=== PATIENT | male | born 1980 | race Caucasian/White ===

== ENCOUNTER 2017-09-29 11:03 | Inpatient (IN) | payer OTHER ==
[~2017-09-29] VITALS: Ht 180.3 cm; Wt 77.0 kg
[2017-09-29 11:11] VITALS: BP 133/88; PULSE 88; RESP 16; TEMP 98.6; O2SAT 98
[2017-09-29 12:24] LABS: AUTOMATED NEUTROPHIL # 3.6 TH/MM3 (1.8-7.7); BASOPHIL % 0.5 % (0.0-2.0); EOSINOPHIL # 0.1 TH/MM3 (0-0.4); EOSINOPHIL % 1.9 % (0.0-4.0); HEMOGLOBIN 16.2 GM/DL (13.0-17.0); LYMPH % 27.7 % (9.0-44.0); LYMPHOCYTE # 1.6 TH/MM3 (1.0-4.8); MEAN CORPUSCULAR HEMOGLOBIN 32.8 PG (27.0-34.0); MEAN CORPUSCULAR HGB CONC 34.5 % (32.0-36.0); MEAN PLATELET VOLUME 10.1 FL (7.0-11.0); MONO % 8.2 % (0.0-8.0); MONOCYTE # 0.5 TH/MM3 (0-0.9); NEUT % 61.7 % (16.0-70.0); PLATELET COUNT 149 TH/MM3 (150-450); RED BLOOD COUNT 4.95 MIL/MM3 (4.50-5.90); RED CELL DISTRIBUTION WIDTH 12.7 % (11.6-17.2); WHITE BLOOD COUNT 5.9 TH/MM3 (4.0-11.0)
[2017-09-29 12:56] LABS: ALBUMIN 4.1 GM/DL (3.4-5.0); ALKALINE PHOSPHATASE 47 U/L (45-117); ALT (GPT) 24 U/L (12-78); AST (GOT) 11 U/L (15-37); BICARBONATE 23.5 MEQ/L (21.0-32.0); BLOOD UREA NITROGEN 12 MG/DL (7-18); CALCIUM 8.5 MG/DL (8.5-10.1); CHLORIDE 110 MEQ/L (98-107); CREATININE 0.78 MG/DL (0.60-1.30); GLOMERULAR FILTRATION RATE 112 ML/MIN (>89); GLUCOSE,RANDOM 87 MG/DL (74-106); SODIUM (NA) 143 MEQ/L (136-145); TOTAL BILIRUBIN ADULT 0.6 MG/DL (0.2-1.0); TOTAL PROTEIN 7.3 GM/DL (6.4-8.2)
[2017-09-29 13:02] LABS: ACETAMINOPHEN LESS THAN 2.0 MCG/ML (10.0-30.0)
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
[2017-09-29] MEDS ORDERED: diphenhydrAMINE HCL 50 MG/ML VIAL IM PRN (16:00)
[2017-09-29] MEDS ORDERED: ALUMINUM/MAGNESIUM/SIMETH 30 ML CUP PO PRN (16:00)
[2017-09-29] MEDS ORDERED: ACETAMINOPHEN 325 MG TAB PO PRN (16:00)
[2017-09-29] MEDS ORDERED: MAGNESIUM HYDROXIDE SUSP 30 ML CUP PO PRN (16:00)
[2017-09-29] MEDS: ZIPRASIDONE HCL 40 MG CAP PO SCH ×2 (16:36→17:58)
[2017-09-29] MEDS: NICOTINE 21 MG/24 HR PATCH T-DERMAL SCH (16:38)
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
[2017-09-29 17:59] VITALS: BP 144/89; PULSE 72; RESP 18; TEMP 97.8; O2SAT 100
[2017-09-29] MEDS: diphenhydrAMINE HCL 50 MG CAP PO PRN (19:43)
[2017-09-30] MEDS: diphenhydrAMINE HCL 50 MG CAP PO PRN ×2 (03:12→22:37)
[2017-09-30 06:01] VITALS: BP 137/87; PULSE 59; RESP 18; TEMP 97; O2SAT 99
[2017-09-30] MEDS: NICOTINE 21 MG/24 HR PATCH T-DERMAL SCH (09:00)
[2017-09-30] MEDS: REMOVE OLD PATCH T-DERMAL SCH (09:00)
[2017-09-30 09:02] LABS: BICARBONATE 22.2 MEQ/L (21.0-32.0); BLOOD UREA NITROGEN 10 MG/DL (7-18); CALCIUM 9.3 MG/DL (8.5-10.1); CHLORIDE 109 MEQ/L (98-107); CHOLESTEROL 130 MG/DL (120-200); CREATININE 0.97 MG/DL (0.60-1.30); GLOMERULAR FILTRATION RATE 87 ML/MIN (>89); GLUCOSE,RANDOM 109 MG/DL (74-106); SODIUM (NA) 141 MEQ/L (136-145); TRIGLYCERIDES 133 MG/DL (42-150)
[2017-09-30 09:21] LABS: CHOLESTEROL/ HDL RATIO 3.14 RATIO; HDL CHOLESTEROL 41.3 MG/DL (40.0-60.0); LDL CHOLESTEROL 62 MG/DL (0-99)
[2017-09-30] MEDS ORDERED: INFLUENZA VIRUS VACCINE (QUADRIVALENT) 0.5 ML SYR IM ONE (10:00)
[2017-09-30 13:40] LABS: HEMOGLOBIN A1C 4.7 % (4.3-6.0)
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
[2017-09-30 16:44] VITALS: BP 150/96; PULSE 71; RESP 18; TEMP 97.6; O2SAT 99
[2017-10-01 05:53] VITALS: BP 144/84; PULSE 64; RESP 16; TEMP 98; O2SAT 98
[2017-10-01] MEDS: ZIPRASIDONE HCL 40 MG CAP PO SCH (08:51)
[2017-10-01] MEDS: NICOTINE 21 MG/24 HR PATCH T-DERMAL SCH (08:55)
[2017-10-01] MEDS: REMOVE OLD PATCH T-DERMAL SCH (09:00)
--- NOTE | 2017-10-01 11:45 | PD.CONS ---
HPI Service [facility] Hospitalists Consult Requested By Dr. Frost Reason for Consult Medical Management Primary Care Physician No Primary Care Physician Diagnoses: History of Present Illness 37-year-old male with no significant past medical history admitted to inpatient psychiatry under Ex Parte placed by his mother who is a retired psychologist, for acute psychosis, drug abuse, grand larceny, paranoia. Hospitalist consulted for medical management. The patient reports no significant past medical history. Does not take any medications on a regular basis. He denies any medical complaints including no fever/chills, cough, congestion, headache, lightheadedness, dizziness, chest pain, palpitations, shortness of breath, abdominal pain, nausea/vomiting, diarrhea, or urinary complaints. He does continue to smoke tobacco however is motivated to quit with nicotine patches. Reports occasional alcohol and marijuana use, denies any other illicit drug use. Discussed with RN, no issues reported. Review of Systems Except as stated in HPI: all other systems reviewed are Neg Past Family Social History Allergies: Coded Allergies: No Known Allergies (Verified Allergy, Unknown, 09/29/17) Past Medical History Nephrolithiasis Past Surgical History Hernia repair Some urologic procedure for nephrolithiasis. Reported Medications Denies taking any medications on a regular basis. Active Ordered Medications Current Medications Medications (Trade) Dose Ordered Sig/Amy Route Start Time Stop Time Status Last Admin (Benadryl) 50 mg Q6H PRN PO 09/29/17 16:00 09/30/17 22:37 (Benadryl Inj) 50 mg Q6H PRN IM 09/29/17 16:00 (Tylenol) 650 mg Q4H PRN PO 09/29/17 16:00 (Milk Of Magnesia Liq) 30 ml DAILY PRN PO 09/29/17 16:00 (Mag-Al Plus Susp Liq) 30 ml Q6H PRN PO 09/29/17 16:00 (Habitrol 21 Mg Patch.24 Hr) 1 patch DAILY T-DERMAL 09/29/17 16:00 10/01/17 08:55 Miscellaneous Information 1 DAILY T-DERMAL 09/30/17 09:00 10/01/17 09:00 (Geodon) 40 mg BIDPC PO 09/29/17 16:00 10/01/17 08:51 Family History Mother with history of borderline diabetes Denies any other significant family history of cancers, stroke, heart disease Social History Smokes tobacco 1/2 to 2/3 pack per day, trying to quit Occasional alcohol use Occasional marijuana use Denies any other illicit drug use Physical Exam Vital Signs Vital Signs Date Time Temp Pulse Resp B/P (MAP) Pulse Ox O2 Delivery O2 Flow Rate FiO2 10/01/17 05:53 98.0 64 16 144/84 (104) 98 09/30/17 16:44 97.6 71 18 150/96 (114) 99 Physical Exam GENERAL: Well-nourished, well-developed young male patient in NAD. SKIN: Warm and dry. No rash. HEAD: Normocephalic. Atraumatic. EYES: Pupils equal and round. No scleral icterus. No injection or drainage. ENT: No nasal bleeding or discharge. Mucous membranes pink and moist. NECK: Supple. Trachea midline. CARDIOVASCULAR: Regular rate and rhythm. No murmur appreciated. RESPIRATORY: No accessory muscle use. Clear to auscultation. Breath sounds equal bilaterally. GASTROINTESTINAL: Abdomen soft, non-tender, nondistended. Normoactive bowel sounds x4. MUSCULOSKELETAL: No obvious deformities. Extremities without clubbing, cyanosis , or edema. NEUROLOGICAL: AAOx4. No obvious cranial nerve deficits. Motor grossly within normal limits. Moving all extremities spontaneously. Normal speech. Result Diagram: 09/29/17 1145 09/30/17 0805 Assessment and Plan Problem List: (1) Unspecified psychosis ICD Code: F29 - Unspecified psychosis not due to a substance or known physiological condition Status: Acute Assessment and Plan 37-year-old male with no significant past medical history admitted to inpatient psychiatry under Ex Parte placed by his mother who is a retired psychologist, for acute psychosis, drug abuse, grand larceny, paranoia. Hospitalist consulted for medical management. Acute Psychosis: presented under Ex Parte placed by the patient's mother -Continue management per psychiatry -CBC, CMP, TSH reviewed and unremarkable -UDS positive for cannabinoids only so far -Check Head CT to rule out organic etiology -Continue on geodon per psychiatry Tobacco Use: patient smokes 1/2 to 2/3 PPD, motivated to quit -counseled on cessation -nicotine patch Marijuana Use: patient with occasional marijuana use, UDS positive for cannabinoids -counseled on cessation DVT Prophylaxis: patient is ambulatory Code Status Full Code Discussed Condition With Patient, RN Disposition: If head CT negative, the patient will be medically cleared. Addendum: Head CT reviewed and unremarkable. The patient is medically stable, will sign off. Please re-consult hospitalists as needed if any new issues arise. Thank you for this consultation. Rosalina Duque PA-C Oct 01, 2017 11:44
--- NOTE | 2017-10-01 14:39 | RADRPT ---
EXAM DATE: 10/01/2017 2:02 PM EDT AGE/SEX: 37 years / Male INDICATIONS: Altered mental status CLINICAL DATA: This is the patient's initial encounter. Patient reports that signs and symptoms have been present for 1 day and indicates a pain score of 0/10. MEDICAL/SURGICAL HISTORY: None. None. RADIATION DOSE: 38.86 CTDI (mGy) COMPARISON: No prior exams available for comparison. TECHNIQUE: CT of the head without contrast. Using automated exposure control and adjustment of the mA and/or kV according to patient size, radiation dose was kept as low as reasonably achievable to ob tain optimal diagnostic quality images. FINDINGS: Cerebrum: The ventricles are normal for age. No evidence of midline shift, mass lesion, hemorrhage or acute infarction. No extraaxial fluid collections are seen. Posterior Fossa: The cerebellum and brainstem are intact. The 4th ventricle is midline. The cerebe llopontine angle is unremarkable. Extracranial: The visualized portion of the orbits is intact. Skull: The calvaria is intact. No evidence of skull fracture. CONCLUSION: No intracranial abnormality is seen. Electronically signed by: Chele Matthew MD 10/01/2017 2:37 PM EDT
--- NOTE | 2017-10-01 14:46 | HHI.PYPN ---
Subjective Remarks Patient seen and lennon with nurse Dieudonne, chart reviewed, patient compliant medications. Patient calm and cooperative with me though there is a vague vigilance and guardedness with him. There is some subtle delays in responses, there is some confusing and contradictory responses also noted related to his timeline coming down here his living situations his education and his substance use. He is also some vagueness with his relationship with his mother. Though he does acknowledge albeit somewhat reluctantly multiple drug abuse including intravenous drug abuse primarily opiates. He does deny voices. He does deny suicidality. Denies inpatient psychiatric hospitalization will be stated his family had a Ritalin as a child and he has been on Prozac briefly as a teenager. He does acknowledge smoking marijuana frequently. At this time I feel he still meets criteria for further observation under the Edwards act. I will increase his Geodon to 80 mg twice daily from 40 mg twice daily Review of Systems Except as stated in HPI: all other systems reviewed are Neg Mental Status Examination Appearance: Appropriate Consciousness: Vigilant Orientation: x4 Motor Activity: Normal gait Speech: Rapid Language: Adequate Fund of Knowledge: Inadequate Attention and Concentration: Adequate Memory: Unremarkable Mood: Anxious Affect: Anxious Thought Process & Associations: Tangential Thought Content: Bizarre thinking, Delusional Hallucination Type: None Delusion Type: Paranoid Suicidal Ideation: No Suicidal Plan: No Suicidal Intention: No Homicidal Ideation: No Homicidal Plan: No Insight: Poor Judgment: Poor Results Vitals/IOs Vital Signs Date Time Temp Pulse Resp B/P (MAP) Pulse Ox O2 Delivery O2 Flow Rate FiO2 10/01/17 05:53 98.0 64 16 144/84 (104) 98 Assessment & Plan Problem List: (1) Unspecified psychosis ICD Codes: F29 - Unspecified psychosis not due to a substance or known physiological condition Status: Acute Assessment & Plan Estimated LOS: days patient remains psychotic somewhat delusional quite confusing. She medication adjustment above Justification for Cont. Inpt. At this time patient would decompensate the place to a lower level of care Discharge Planning To be determined perhaps back with his mother Chele Garcia MD Oct 01, 2017 14:46
[2017-10-01] MEDS: ZIPRASIDONE HCL 80 MG CAP PO SCH (17:49)
[2017-10-01 18:09] VITALS: BP 144/85; PULSE 91; RESP 16; TEMP 98.2; O2SAT 97
[2017-10-02 06:01] VITALS: BP 143/74; PULSE 64; RESP 18; TEMP 97.4
[2017-10-02] MEDS: NICOTINE 21 MG/24 HR PATCH T-DERMAL SCH (09:00)
[2017-10-02] MEDS: REMOVE OLD PATCH T-DERMAL SCH (09:00)
[2017-10-02] MEDS: ZIPRASIDONE HCL 80 MG CAP PO SCH ×2 (09:13→17:29)
--- NOTE | 2017-10-02 15:48 | HHI.PYPN ---
Subjective Remarks Patient seen in his room the floor staff, chart reviewed, patient discussed with nurse. Patient continues quite malodorous, also continues somewhat disorganized with his speech is tangential and circumstantial. Is somewhat vague about voices today. Complaint is some possible stiffness or on his jaw. We will monitor that with the medication over the next 24 hours Review of Systems Except as stated in HPI: all other systems reviewed are Neg Mental Status Examination Appearance: Appropriate Consciousness: Vigilant Orientation: x4 Motor Activity: Normal gait Speech: Rapid Language: Adequate Fund of Knowledge: Inadequate Attention and Concentration: Adequate Memory: Unremarkable Mood: Anxious Affect: Anxious Thought Process & Associations: Tangential Thought Content: Bizarre thinking, Delusional Hallucination Type: None Delusion Type: Paranoid Suicidal Ideation: No Suicidal Plan: No Suicidal Intention: No Homicidal Ideation: No Homicidal Plan: No Insight: Poor Judgment: Poor Results Vitals/IOs Vital Signs Date Time Temp Pulse Resp B/P (MAP) Pulse Ox O2 Delivery O2 Flow Rate FiO2 10/02/17 06:01 97.4 64 18 143/74 (97) 10/01/17 18:09 97 Intake and Output 10/02/17 10/02/17 10/02/17 07:59 15:59 23:59 Intake Total 360 ml Balance 360 ml Assessment & Plan Problem List: (1) Unspecified psychosis ICD Codes: F29 - Unspecified psychosis not due to a substance or known physiological condition Status: Acute Assessment & Plan Estimated LOS: days patient continues psychotic, complaint medications now continue treatment still is quite poor with his ADLs Justification for Cont. Inpt. At this time patient would decompensate a place to a lower level of care Discharge Planning To be determined Chele Garcia MD Oct 02, 2017 15:48
[2017-10-02] MEDS: diphenhydrAMINE HCL 50 MG CAP PO PRN ×2 (16:41→22:35)
[2017-10-02 18:14] VITALS: BP 170/109; PULSE 88; RESP 20; TEMP 98.7; O2SAT 97
[2017-10-02 18:31] VITALS: BP 140/82; PULSE 87
[2017-10-02 23:25] VITALS: BP 141/90; PULSE 75; RESP 17; TEMP 98.3; O2SAT 97
[2017-10-03 06:13] VITALS: BP 145/67; PULSE 67; RESP 16; TEMP 97.7; O2SAT 99
[2017-10-03] MEDS: REMOVE OLD PATCH T-DERMAL SCH (09:00)
[2017-10-03] MEDS: NICOTINE 21 MG/24 HR PATCH T-DERMAL SCH (09:00)
[2017-10-03] MEDS: ZIPRASIDONE HCL 80 MG CAP PO SCH ×2 (09:35→18:25)
--- NOTE | 2017-10-03 12:29 | HHI.PYPN ---
Subjective Remarks Patient seen and lennon with floor staff, chart reviewed, patient compliant medications. Patient calm cooperative with me now denies suicidality homicidality voices or visions. Feels medications are helping him. Patient is scheduled for [facility] tomorrow. At the stomach feel patient has capacity to sign on a voluntary basis thus I will lift Edwards act allow patient to sign voluntary. For now continue treatment Review of Systems Except as stated in HPI: all other systems reviewed are Neg Mental Status Examination Appearance: Appropriate Consciousness: Vigilant Orientation: x4 Motor Activity: Normal gait Speech: Rapid Language: Adequate Fund of Knowledge: Inadequate Attention and Concentration: Adequate Memory: Unremarkable Mood: Anxious Affect: Anxious Thought Process & Associations: Tangential Thought Content: Bizarre thinking, Delusional Hallucination Type: None Delusion Type: Paranoid Suicidal Ideation: No Suicidal Plan: No Suicidal Intention: No Homicidal Ideation: No Homicidal Plan: No Insight: Poor Judgment: Poor Results Vitals/IOs Vital Signs Date Time Temp Pulse Resp B/P (MAP) Pulse Ox O2 Delivery O2 Flow Rate FiO2 10/03/17 06:13 97.7 67 16 145/67 (93) 99 Assessment & Plan Problem List: (1) BRIEF PSYCHOTIC DISORDER ICD Codes: F23 - BRIEF PSYCHOTIC DISORDER Assessment & Plan Estimated LOS: days patient's psychosis is slowly resolving, his vigilance and paranoid markedly diminished. He is no behavior problem. Will lift [place] act allow patient to sign voluntary Justification for Cont. Inpt. At this time patient would decompensate a place to a lower level of care Discharge Planning To be determined Chele Garcia MD Oct 03, 2017 12:29
[2017-10-03 15:23] VITALS: BP 128/78; PULSE 99; RESP 18; TEMP 98.4; O2SAT 99
[2017-10-03] MEDS: diphenhydrAMINE HCL 50 MG CAP PO PRN (18:25)
[2017-10-04 05:59] VITALS: BP 125/77; PULSE 80; RESP 16; TEMP 97.6; O2SAT 99
[2017-10-04] MEDS: NICOTINE 21 MG/24 HR PATCH T-DERMAL SCH (08:28)
[2017-10-04] MEDS: ZIPRASIDONE HCL 80 MG CAP PO SCH ×2 (08:29→17:42)
[2017-10-04] MEDS: REMOVE OLD PATCH T-DERMAL SCH (08:29)
[2017-10-04] MEDS: diphenhydrAMINE HCL 50 MG CAP PO PRN ×2 (08:55→17:42)
--- NOTE | 2017-10-04 15:40 | HHI.PYPN ---
Subjective Remarks Patient seen and lennon with nurse, chart reviewed, patient compliant medications. Patient somewhat calmer today and more focused he is making inquiries at the very sober houses in town including [facility]. He hopes to get in to that facility tomorrow. He denies suicidality homicidality voices or visions. He now continue treatment Review of Systems Except as stated in HPI: all other systems reviewed are Neg Mental Status Examination Appearance: Appropriate Consciousness: Vigilant Orientation: x4 Motor Activity: Normal gait Speech: Rapid Language: Adequate Fund of Knowledge: Inadequate Attention and Concentration: Adequate Memory: Unremarkable Mood: Anxious Affect: Anxious Thought Process & Associations: Tangential Thought Content: Bizarre thinking, Delusional Hallucination Type: None Delusion Type: Paranoid Suicidal Ideation: No Suicidal Plan: No Suicidal Intention: No Homicidal Ideation: No Homicidal Plan: No Insight: Poor Judgment: Poor Results Vitals/IOs Vital Signs Date Time Temp Pulse Resp B/P (MAP) Pulse Ox O2 Delivery O2 Flow Rate FiO2 10/04/17 05:59 97.6 80 16 125/77 (93) 99 Assessment & Plan Problem List: (1) BRIEF PSYCHOTIC DISORDER ICD Codes: F23 - BRIEF PSYCHOTIC DISORDER Assessment & Plan Estimated LOS: days patient's psychosis is slowly resolving, he now denies suicidality homicidality voice or visions. He is making contact with various safehouses sober living houses including [facility] that may have a place for him tomorrow Justification for Cont. Inpt. At this time patient would decompensate if not placed in an appropriate level of care Discharge Planning To be determined Chele Garcia MD Oct 04, 2017 15:40
[2017-10-04 17:46] VITALS: BP 161/94; PULSE 79; RESP 20; TEMP 98; O2SAT 100
[2017-10-05] MEDS: diphenhydrAMINE HCL 50 MG CAP PO PRN ×2 (03:32→10:17)
[2017-10-05 06:03] VITALS: BP 129/80; PULSE 67; RESP 16; TEMP 98.4; O2SAT 94
[2017-10-05] MEDS: ZIPRASIDONE HCL 80 MG CAP PO SCH (08:14)
[2017-10-05] MEDS: NICOTINE 21 MG/24 HR PATCH T-DERMAL SCH (08:15)
[2017-10-05] MEDS: REMOVE OLD PATCH T-DERMAL SCH (08:17)
[2017-10-05] MEDS ORDERED: GEOD80CA PO (13:54)
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
[2017-10-05] MEDS ORDERED: NICO21DI25 T-DERMAL (14:10)
[2017-10-05 18:17] VITALS: BP 167/97; PULSE 92; RESP 16; TEMP 98.7; O2SAT 98
== END 2017-10-05 18:00 | DRG 885 ==
LOC: NEPD 11:03 → NEDA 15:56 → H270 17:45 → H260 09-30 10:40
PROVIDERS: ADMIT Psychiatry & Neurology Psychiatry; ATTEND Psychiatry & Neurology Psychiatry
DX: F23 Brief psychotic disorder (principal); F17.210 Nicotine dependence, cigarettes, uncomplicated; F12.90 Cannabis use, unspecified, uncomplicated; Z87.442 Personal history of urinary calculi
CPT/HCPCS: 70450; 80048; 80053; 80061; 80307; 83036; 84443; 85025; 99285; G0481; Q0163